=== PATIENT | female | born 1985 | race Hispanic/Latino ===

== ENCOUNTER → 2021-11-24 | Outpatient (REF) | payer SELFPAY | LOC: M LAB REF 21:46 | PROVIDERS: ATTEND Physician Assistant Medical | DX: N89.8 Other specified noninflammatory disorders of vagina (principal) ==

== ENCOUNTER → 2021-12-02 | Outpatient (REF) | payer SELFPAY ==
[2021-12-03 12:08] LABS: HSV TYPE II IgG SPECIFIC >23.60 index (0.00-0.90)
== END ==
LOC: M LAB REF 12:15
PROVIDERS: ATTEND Physician Assistant Medical
DX: Z11.3 Encounter for screening for infections with a predominantly sexual mode of transmission (principal)

== ENCOUNTER 2023-11-04 10:28 | Emergency (ER) | payer OTHER, SELFPAY ==
[2023-11-04] MEDS: FERROUS GLUCONATE 324 MG TAB PO SCH (09:00)
[2023-11-04 11:18] LABS: HEMATOCRIT 37.5 % (36.0-47.0); HEMOGLOBIN 12.7 g/dl (12.0-15.5); MEAN CORPUSCULAR HEMOGLOBIN 31.5 pg (27.0-33.0); MEAN CORPUSCULAR HGB CONC 33.9 g/dl (32.0-36.5); MEAN CORPUSCULAR VOLUME 93.1 fl (80.0-96.0); PLATELET COUNT, AUTOMATED 246 10^3/uL (150-450); RED BLOOD COUNT 4.03 10^6/uL (4.00-5.40); WHITE BLOOD COUNT 6.3 10^3/uL (4.0-10.0)
[2023-11-04 11:37] LABS: AMPHETAMINES LEVEL URINE NEGATIVE (NEGATIVE); BARBITURATES URINE NEGATIVE (NEGATIVE); BENZODIAZEPINES URINE NEGATIVE (NEGATIVE); COCAINE METABOLITE URINE NEGATIVE (NEGATIVE); METHADONE URINE NEGATIVE (NEGATIVE); OPIATES URINE NEGATIVE (NEGATIVE); PHENCYCLIDINE URINE NEGATIVE (NEGATIVE)
[2023-11-04 11:38] LABS: CANNABINOIDS URINE NEGATIVE (NEGATIVE)
[2023-11-04 11:39] LABS: ETHYL ALCOHOL (ETHANOL) < 0.003 % (0.000-0.010)
[2023-11-04 11:41] LABS: ALBUMIN 4.1 G/DL (3.2-5.2); ALKALINE PHOSPHATASE 65 U/L (46-116); ALT/SGPT 16 U/L (7.0-40); AST/SGOT 10 U/L (<34); BILIRUBIN,DIRECT 0.3 MG/DL (<0.4); BILIRUBIN,TOTAL 0.9 MG/DL (0.3-1.2); BLOOD UREA NITROGEN 14 MG/DL (9-23); CALCIUM LEVEL 9.1 MG/DL (8.5-10.1); CARBON DIOXIDE LEVEL 27 MMOL/L (20-31); CHLORIDE LEVEL 108 MMOL/L (98-107); CREATININE FOR GFR 0.84 MG/DL (0.55-1.30); GLOMERULAR FILTRATION RATE > 60.0 (>60); GLUCOSE, FASTING 89 MG/DL (60-100); POTASSIUM SERUM 4.2 MMOL/L (3.5-5.1); SALICYLATE LEVEL < 3.0 MG/DL (<30); SODIUM LEVEL 138 MMOL/L (136-145)
[2023-11-04 11:43] LABS: THYROID STIMULATING HORMONE 1.054 uIU/ML (0.55-4.78)
[2023-11-04 11:44] LABS: HCG, SERUM QUALITATIVE NEGATIVE (NEGATIVE)
[2023-11-04] MEDS ORDERED: BUPR15TA PO (12:30)
[2023-11-04] MEDS ORDERED: FERR324T21 PO (12:30)
[2023-11-04] MEDS ORDERED: LEXA1TAB2 PO (12:30)
[2023-11-04] MEDS ORDERED: BUPR15TASR PO (12:30)
[2023-11-04] MEDS ORDERED: VITA100054 PO (12:30)
[2023-11-04] MEDS ORDERED: HOME MED LIST COMPLETE! XX SCH (12:30)
[2023-11-04 16:51] VITALS: BP 111/61; TEMP 97.1; O2SAT 98
[2023-11-05] MEDS ORDERED: ESCITALOPRAM OXALATE 10 MG TAB (LEXAPRO) PO SCH (09:00)
[2023-11-05] MEDS ORDERED: buPROPion (WELLBUTRIN SR) 100 MG SR TAB PO SCH (09:00)
[2023-11-05] MEDS ORDERED: FERROUS GLUCONATE 324 MG TAB PO SCH (09:00)
== END 2023-11-04 17:43 ==
LOC: M ED 10:28
DX: R45.851 Suicidal ideations (principal); R00.1 Bradycardia, unspecified; E11.9 Type 2 diabetes mellitus without complications; F41.9 Anxiety disorder, unspecified; F32.A Depression, unspecified; F10.10 Alcohol abuse, uncomplicated; Z91.040 Latex allergy status; Z79.899 Other long term (current) drug therapy

== ENCOUNTER 2024-02-01 01:46 | Emergency (ER) | payer OTHER ==
[~2024-02-01] VITALS: Ht 160 cm; Wt 70.1 kg
[~2024-02-01 01:46] MED LIST: BUPR15TA PO; BUPR15TASR PO; FERR324T21 PO; LEXA1TAB2 PO; VITA100054 PO
[2024-02-01] MEDS: cefTRIAXone SOD 2 GM in DEXTROSE 5% (D5W) ADV/MINI-BAG 50 ML IV ONE (03:55)
[2024-02-01] MEDS: KETOROLAC 30 MG/ML 1ML VIAL IV ONE (03:55)
[2024-02-01 03:57] LABS: BASO # 0.1 10^3/uL (0.0-0.2); BASO % 0.5 % (0.0-1.0); EOS # 0.3 10^3/uL (0.0-0.5); EOS % 2.6 % (0.0-3.0); HEMATOCRIT 37.7 % (36.0-47.0); HEMOGLOBIN 12.8 g/dl (12.0-15.5); LYMPH # 1.9 10^3/uL (1.5-5.0); MEAN CORPUSCULAR HEMOGLOBIN 31.9 pg (27.0-33.0); MONO % 8.3 % (2.0-8.0); NEUTROPHILS # 8.5 10^3/uL (1.5-8.5); NEUTROPHILS % 72.3 % (36.0-66.0); PLATELET COUNT, AUTOMATED 259 10^3/uL (150-450); RED BLOOD COUNT 4.01 10^6/uL (4.00-5.40); WHITE BLOOD COUNT 11.7 10^3/uL (4.0-10.0)
[2024-02-01 04:41] LABS: HCG, SERUM QUALITATIVE NEGATIVE (NEGATIVE)
[2024-02-01 05:01] LABS: BLOOD UREA NITROGEN 18 MG/DL (9-23); CALCIUM LEVEL 8.6 MG/DL (8.5-10.1); CARBON DIOXIDE LEVEL 24 MMOL/L (20-31); CHLORIDE LEVEL 108 MMOL/L (98-107); CREATININE FOR GFR 0.93 MG/DL (0.55-1.30); GLOMERULAR FILTRATION RATE > 60.0 (>60); GLUCOSE, FASTING 120 MG/DL (60-100); SODIUM LEVEL 139 MMOL/L (136-145)
[2024-02-01 06:25] VITALS: BP 108/57; TEMP 97.7; O2SAT 99
[2024-02-01] MEDS ORDERED: CEFD1CAP9 PO (06:28)
== END 2024-02-01 06:38 | disposition home or self-care (01) ==
LOC: M ED 01:46
DX: N39.0 Urinary tract infection, site not specified (principal); F32.A Depression, unspecified; Z87.442 Personal history of urinary calculi; Z91.040 Latex allergy status; Z79.2 Long term (current) use of antibiotics; Z79.899 Other long term (current) drug therapy
CPT/HCPCS: 74176; 80048; 81001; 84703; 85025; 87088; 87186; 96365; 96375; 99284; J0696; J1885